=== PATIENT | female | born 1985 | race Caucasian/White ===

== ENCOUNTER 2016-05-08 20:11 | Emergency (ER) | payer MEDICAID ==
[2016-05-08 20:37] VITALS: BP 144/65; PULSE 95; TEMP 98.7; BMI 48.2
--- NOTE | 2016-05-08 21:04 | EDPRACDOC ---
- General Information Chief Complaint: Flu-Like Symptoms Stated Complaint: GENERALIZED WEAKNESS Time Seen by Provider: 05/08/16 20:58 Mode Of Arrival: Car Home Medications: Home Medications Aripiprazole [Abilify] 5 mg PO DAILY 02/06/16 Doxepin HCl 50 mg PO QHS 02/06/16 Gabapentin 300 mg PO QHS 02/06/16 Hydroxyzine Pamoate [Vistaril] 25 mg PO BID PRN #10 capsule 02/06/16 Azithromycin [Zithromax] 0 mg PO DAILY #6 tablet 05/08/16 Promethazine Dextromethorphan [Phenergan DM] 5 ml PO Q6 PRN #120 ml 05/08/16 Allergies/Adverse Reactions: Allergies Allergy/AdvReac Type Severity Reaction Status Date / Time haloperidol [From Haldol] Allergy Hives* Verified 02/06/16 14:18 - History of Present Illness Onset: 2 days HPI: PT COMPLAINS OF CHILLS, NON-PROD COUGH, SORE THROAT, SINUS CONGESTION AND PAIN, HEADACHE, MYALGIAS, "LUNGS HURTING" X 2 DAYS, STATES VOMITED X 2. NO FEVER. Current Symptoms: Reports: Cough, Headache, Nasal Symptoms, Sore Throat, Myalgia , Vomiting Shortness of Breath: None Cough: Reports: Non-productive Rhinorrhea: Reports: Clear Ear Symptoms: Reports: None Fever Severity/Quality: Reports: subjective Oral Intake: Normal Urinary Output: Normal Relevant History of: None Associated Signs & Symptoms:: Reports: Cough, Fever, Headache, Nasal Symptoms, Sore Throat, Vomiting, Myalgia. Denies: Diarrhea, Rash, Pain with head movement , AMS ED Past Medical History - History Reviewed Yes Nurses notes reviewed and agree except as marked - Patient Medical History Cardiac History: Denies: Coronary Artery Disease, Atrial Fibrillation, Hypertension, Congestive Heart Failure, Heart Attack, Cardiac Catheterization, CABG, Hypercholesterolemia, Internal Defibrillator, Pacemaker Respiratory History: Denies: Asthma, COPD, Bronchitis, Asbestosis, Aspiration Pneumonia, Cough, Chronic Bronchitis, Pneumonia GI/ History: Denies: Urinary Tract Infection, Kidney Stones, Liver Failure, Gastroesophageal Reflux, Ulcer Musculoskeletal History: Denies: Arthritis Psychological History: Reports: Depression, Bipolar Disorder. Denies: Anxiety, Schizophrenia Systemic History: Denies: Cancer, Anemia, Diabetes, Hyperthyroidism, Hypothyroidism, HIV Surgical History: Denies: CABG, Hysterectomy, Angioplasty, Cardiac Catheterization, Hernia Surgery, Other - Family Medical History Denies: Hypertension, Diabetes, Cancer, Stroke, Cardiac Disorders, Respiratory Disorders, Renal Disease, Blood Disorders - Social Medical History Smoking Status: Heavy tobacco smoker (5 or more cigarettes/day or daily pipe/ cigar) ETOH: None Substance Abuse: None EDM Review of Systems - Review of Systems Constitutional: Chills, Fever Eyes: negative: Blurred Vision, Double Vision Ears: Pain. negative: Drainage Throat: Pain Nose: Congestion. negative: Discharge Respiratory: Cough. negative: Shortness of Breath, Wheezing Gastrointestinal: Vomiting. negative: Diarrhea, Nausea Genitourinary: negative: Dysuria, Frequency Neurological: Headache Musculoskeletal: No Symptoms Reported Integumentary: No Symptoms Reported - Physical Exam Constitutional: Alert (Awake), No apparent distress Oriented to: Time, Person, Place Last recorded Vital Signs: Last Vital Signs Temp 98.7 F 05/08/16 20:32 Pulse 95 05/08/16 20:32 Resp 20 05/08/16 20:32 BP 144/65 05/08/16 20:32 Pulse Ox 97 05/08/16 20:32 Oxygen Pulse Oxygen Saturation 97 O2 Device Room Air Oxygen Flow Rate Fraction of Inspired Oxygen ( FIO2) - HEENT Head: Normal ( normocephalic) Eye Exam: Normal (PERRL, EOMI, Sclera white) Oropharynx: Red. negative: Tonsillar Hypertrophy, [place] Tympanic Membrane: Dull ENT EAC: Normal TMJ: Normal Nose: No Symptoms Reported (septum midline) Neck: Normal (FROM, trachea at midline) HEENT Comment: FRONTAL AND MAXILLARY SINUSES TTP - Respiratory/Cardiovascular Respiratory: Normal - CTA (BBS clear to auscultation without adventitious sounds ) Cardiovascular: Normal (RRR without murmur, gallop or rub) - Musculoskeletal Back: Normal (Non-Tender) Extremities: Normal (Normal tone, Pulses 2+ No cyanosis or edema, FROM) - Integumentary Skin: Normal, Warm, Dry Lymphatics: Normal (no adenopathy) - Neurologic Memory Impaired: Normal Motor Function: Normal (Normal tone, Pulses 2+ No cyanosis or edema, FROM) Cranial Nerve: Normal (CN II-X11 intact sensation, strength 5/5) Cerebellar: Normal Mood Description: Normal Perception: Normal - Differential Diagnosis Bronchitis, Otitis Media, Pneumonia, Sinusitis, URI - Results Urine Test Neg (NEGATIVE) 05/08/16 20:40 Lab Results 05/08/16 20:40 Urine Test Neg Decision Time to Discharge: 21:04 - Departure Disposition: Home Condition: Stable Final Diagnosis: Acute sinusitis Qualifiers: Sinusitis location: maxillary Recurrence: non-recurrent Qualified Code(s): J01.00 - Acute maxillary sinusitis, unspecified Instructions: Sinusitis (ED) Education/Counseling Given To: Patient Education/Counseling Given Regarding: Diagnosis, Treatment, Prognosis, Follow Up Referrals: Nancy Francis, [facility] [Primary Care Provider] - One Week Prescriptions: Azithromycin [Zithromax] 0 mg PO DAILY #6 tablet Promethazine Dextromethorphan [Phenergan DM] 5 ml PO Q6 PRN #120 ml PRN Reason: Cough Additional Instructions: Rest, drink plenty of fluids, use Tylenol every 4 hours and Motrin every 6 hours as needed for pain or fever, return to the ED for any worsening symptoms or concerns.
== END 2016-05-08 21:23 | disposition home or self-care (01) ==
LOC: ED 20:11 → EDMC 21:23
DX: J01.00 Acute maxillary sinusitis, unspecified (principal)
CPT/HCPCS: 81025; 99282